=== PATIENT | male | born 1940 | race Caucasian/White ===

== ENCOUNTER 2021-01-25 13:30 | Outpatient (RCR) | payer MEDICARE, SELFPAY ==
--- NOTE | 2020-11-27 11:12 | PCCPR ---
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
--- NOTE | 2020-12-19 13:49 | PCCPR ---
Absent due to illness Ramon called states he is not feeling well and thinks he has bronchitis. He has an MD apt tomorrow and will most likeluy be out the rest of the week.
--- NOTE | 2020-12-21 14:02 | PCCPR ---
Absent-Ramon called and left a voicemail. States he hasnt been feeling well the past 2 days. Went to PCP and states he has an infection in his lungs? is putting him on antibiotics. He plans to return on Friday.
== END 2021-01-31 15:36 | disposition home or self-care (01) ==
LOC: ANHCPREHAB 13:30
DX: Z95.5 Presence of coronary angioplasty implant and graft (principal)
CPT/HCPCS: 93798

== ENCOUNTER 2021-02-08 11:51 | Emergency (ER) | payer MEDICARE, SELFPAY ==
--- NOTE | ~2021-02-08 | XR_ITS ---
EXAMINATION: XR chest 2V DATE: 02/08/2021 12:12 INDICATION: Chest pain and shortness of breath TECHNIQUE: PA and lateral views of the chest were obtained. COMPARISON: None FINDINGS: Cardiomegaly. Mild increased interstitial pattern and a few peripheral Neil B-lines more prominent in the left than the right lower lung zones. There is also some bilateral infrahilar peribronchial cu ffing. Very small bilateral pleural effusions at the posterior sulci. No pneumothorax. Median sternot tita wires and mediastinal surgical clips are seen, likely from prior coronary artery bypass grafting. Dual lead pacemaker/AICD seen with leads projecting over the expected locations of the right atrium and right ventricle. Partially visualized abdominal aortic endoluminal stent graft. Suture anchors at the right humeral head consistent with prior rotator cuff repair. IMPRESSION: 1. Likely congestive heart failure with cardiomegaly, mild pulmonary edema in the lower lungs and jonas y small bilateral pleural effusions. Reviewed, dictated and finalized at location A. [facility]OLDER IMPRESSION: 1. Likely congestive heart failure with cardiomegaly, mild pulmonary edema in t he lower lungs and very small bilateral pleural effusions.
[2021-02-08 12:09] VITALS: BP 149/87; PULSE 73; RESP 20; TEMP 36.6; O2SAT 95
--- NOTE | 2021-02-08 12:21 | ED.SOB ---
HPI - SOB/Dyspnea General Chief Complaint: Shortness of Breath/Dyspnea Stated Complaint: sob/chest pain Time Seen by Provider: 02/08/21 12:23 Source: patient and RN notes reviewed Mode of arrival: ambulatory Limitations: no limitations History of Present Illness HPI Narrative: 80-year-old male presents with concern for shortness of breath and his lungs seizing up . His daughter reports last night he felt short of breath and when he would lie flat his lungs would stop working . He reports a history of stent placement approximately a month ago, reports history of congestive heart failure. He denies fever, body aches, cough. MD elicited complaint: shortness of breath Related Data Home Medications Medication Instructions Recorded Confirmed alprazolam [Xanax] 0.25 mg PO HS PRN 11/07/20 02/08/21 apixaban [Eliquis] 5 mg PO BID 11/07/20 02/08/21 atorvastatin 40 mg PO DAILY 11/07/20 02/08/21 clopidogrel [Plavix] 75 mg PO DAILY 11/07/20 02/08/21 coenzyme Q10 [CoQ-10] 200 mg PO DAILY 11/07/20 02/08/21 digoxin 125 mcg PO DAILY 11/07/20 02/08/21 esomeprazole magnesium 40 mg PO DAILY 11/07/20 02/08/21 furosemide 40 mg PO DAILY 11/07/20 02/08/21 isosorbide mononitrate 30 mg PO DAILY 11/07/20 02/08/21 losartan 25 mg PO DAILY 11/07/20 02/08/21 metformin 500 mg PO DAILY 11/07/20 02/08/21 metoprolol succinate 25 mg PO DAILY 11/07/20 02/08/21 multivitamin 1 tablet PO DAILY 11/07/20 02/08/21 omega-3 acid ethyl esters [Lovaza] 1 cap PO DAILY 11/07/20 02/08/21 potassium chloride 40 meq PO DAILY 11/07/20 02/08/21 sotalol 80 mg PO BID 11/07/20 02/08/21 zolpidem [Ambien] 5 mg PO HS PRN 11/07/20 02/08/21 finasteride 5 mg PO DAILY 02/08/21 02/08/21 tiotropium bromide [Spiriva 2.5 mcg INHALATION BID 02/08/21 02/08/21 Respimat] Allergies Allergy/AdvReac Type Severity Reaction Status Date / Time benzonatate AdvReac Intermediate Other Verified 02/08/21 12:14 niacin AdvReac Intermediate Other Verified 02/08/21 12:14 cefuroxime AdvReac Unknown Other Verified 02/08/21 12:14 Review of Systems Review of Systems: CONSTITUTIONAL: Denies malaise, chills, sweats, or fever. CARDIOVASCULAR: Denies chest pain RESPIRATORY: Denies cough. Reports shortness of NEUROLOGIC: Denies numbness, weakness All systems reviewed & are unremarkable except as noted in HPI and below PMFSH Family History Family History (Updated 11/07/20 @ 11:29 by Judie Pineda RN) Father Hypertension Heart disease Heart attack Social History Social History Smoking packs per day: 1 Smoking cigarettes per day: 20.0 Years smoked: 10 Smoking pack-years: 10.00 Smoking status: Former smoker Comments At time of signature, agree with nursing past medical, surgical, social and family history. There is no relevant family history pertinent to the presenting complaint Exam Narrative: GENERAL: Nontoxic-appearing, well-nourished, and in no acute distress. HEAD: Normocephalic, atraumatic. EYES: PERRLA, sclera clear ENT: Mucous membranes moist. NECK: Supple. CHEST: Conversational dyspnea, bilateral lower lobes diminished, rhonchi. No bony deformities, no asymmetry. HEART: Irregular. Normal peripheral pulses. SKIN: Warm, dry, no visible rash. NEURO: Alert and oriented x3. PSYCH: Normal mood and affect Course Course Emergency Course: Spoke to the patient's [id number] who is a cardiothoracic surgeon, Royal Schultz, relayed x-ray findings and EKG findings. She request the patient be sent to [facility], if EMS will not taken to [facility] she requests that he be driven there via private vehicle. Patient and family are aware of, understands and agrees to reasons to be transferred to emergency department via EMS. Anticipatory guidance given. Portions of this record may have been created with voice recognition software Vital Signs Vital signs: Reviewed. Transfer Transfered to: [facility] Transportation: ALS Transfer rationale: T wave abnormality, shortness o
--- NOTE | 2021-02-08 12:46 | ECG_ITS ---
Measurements Intervals Daisy Rate: 82 P: NM: 0 QRS: 47 QRSD: 113 T: 216 QT: 428 QTc: 501 Interpretive Statements ATRIAL FLUTTER/TACHYCARDIA INTRAVENTRICULAR CONDUCTION DELAY ST-T WAVE ABNORMALITY IN ANTEROLAT/INF LEADS- CONSIDER ISCHEMIA ABNORMAL ECG Electronically Signed On 02-08-2021 13:13:39 PHOTOGRAPHIC REPRODUCTION TECHNICIAN by Enzo Upton D.O.
== END 2021-02-08 13:10 | disposition short-term general hospital (02) ==
PROVIDERS: Emergency Provider Nurse Practitioner; PCP Internal Medicine
DX: R06.02 Shortness of breath (principal); R93.41 Abnormal radiologic findings on diagnostic imaging of renal pelvis, ureter, or bladder; Z87.891 Personal history of nicotine dependence; Z79.01 Long term (current) use of anticoagulants
CPT/HCPCS: 71046; 93005; 99215; G0463